=== PATIENT | female | born 1990 | race Caucasian/White ===

== ENCOUNTER 2017-10-29 05:20 | Inpatient (IN) | payer OTHER ==
[2017-10-29] MEDS ORDERED: LACTATED RINGER'S 1,000 ML IV (06:19)
[2017-10-29] MEDS: OXYTOCIN 30 UNITS/LR 500 ML IV (06:25)
[2017-10-29] MEDS ORDERED: LIDOCAINE 1% (MPF) 30 ML INJ INJ (06:30)
[2017-10-29] MEDS ORDERED: CARBOPROST 250 MCG INJ IM ×2 (06:30)
[2017-10-29] MEDS ORDERED: DIBUCAINE 1% 30 GM OINT PR (06:30)
[2017-10-29] MEDS ORDERED: MISOPROSTOL 200 MCG TAB PR ×2 (06:30)
[2017-10-29] MEDS ORDERED: SENNA/DOCUSATE NA (8.6MG/50MG) TAB PO (06:30)
[2017-10-29] MEDS ORDERED: OXYTOCIN 30 UNITS/LR 500 ML IV ×3 (06:30)
[2017-10-29] MEDS ORDERED: BUTORPHANOL 2 MG INJ IV ×2 (06:30)
[2017-10-29] MEDS ORDERED: ONDANSETRON 4 MG INJ IV (06:30)
[2017-10-29] MEDS ORDERED: OXYCODONE/ASPIRIN (4.88/325) TAB PO ×2 (06:30)
[2017-10-29] MEDS ORDERED: METHYLERGONOVINE 0.2 MG INJ IM ×2 (06:30)
[2017-10-29] MEDS ORDERED: AMPICILLIN 2 GM/NS (PMX) 100 ML IV (06:30)
[2017-10-29 06:34] LABS: CBV Base Excess -1.4 mmol/L; CBV COHb 0.9 %; CBV Total Hemglobin 17.7 g/dl; Cord Blood Venous pO2 15.7 mmHG (15.0-45.0); Fraction OxyHgb Cord Venous 33.3 %; MODE ROOM AIR; MetHgb Cord Venous 1.2 %; Sample Type Blood venous; Site CORD
[2017-10-29 07:14] LABS: ADD MAN DIFF? NO
[2017-10-29] MEDS: IBUPROFEN 600 MG TAB PO ×3 (07:15→18:01)
[2017-10-29 07:21] LABS: BASOPHIL # 0.1 10^3/ul (0.0-0.1); BASOPHILS % 0.3 % (0.0-2.0); EOSINOPHILS % 0.2 % (0.0-7.0); HEMATOCRIT 42.7 % (37.0-47.0); HEMOGLOBIN 14.7 g/dl (12.0-16.0); LYMPHOCYTES # 2.1 10^3/ul (0.8-2.9); LYMPHOCYTES % 11.1 % (15.0-51.0); MEAN CORPUSCULAR HEMOGLOBIN 26.9 pg (29.0-33.0); MEAN CORPUSCULAR HGB CONC 34.4 g/dl (32.0-37.0); MEAN CORPUSCULAR VOLUME 78.1 fl (82.0-101.0); MEAN PLATELET VOLUME 11.1 fl (7.4-10.4); MONOCYTE # 0.8 10^3/ul (0.3-0.9); MONOCYTES % 4.2 % (0.0-11.0); NEUTROPHIL # 15.5 10^3/ul (1.6-7.5); NEUTROPHILS % 83.7 % (39.0-77.0); PLATELET COUNT 294 10^3/UL (140-415); RED BLOOD COUNT 5.47 10^6/ul (4.20-5.40); RED CELL DISTRIBUTION WIDTH 12.7 % (11.5-14.5)
[2017-10-29 07:21] LABS: WHITE BLOOD COUNT 18.5 10^3/ul (4.8-10.8)
[2017-10-29 07:41] LABS: INR 0.92; PROTIME 12.4 Sec (11.9-14.9)
[2017-10-29 07:42] LABS: PARTIAL THROMBOPLASTIN TIME 28.4 Sec (25.0-35.0)
[2017-10-29 07:45] LABS: ALANINE AMINOTRANSFERASE 27 IU/L (13-69); ALBUMIN 3.6 g/dl (3.3-4.9); ALKALINE PHOSPHATASE 1000 IU/L (42-121); ANION GAP 14 (8-16); ASPARTATE AMINO TRANSFERASE 17 IU/L (15-46); BILIRUBIN,INDIRECT 0.5 mg/dl (0-1.1); BILIRUBIN,TOTAL 0.5 mg/dl (0.2-1.3); BLOOD UREA NITROGEN 6 mg/dl (7-20); CALCIUM 9.5 mg/dl (8.4-10.2); CARBON DIOXIDE 26 mmol/L (21-31); CHLORIDE 103 mmol/L (97-110); CREATININE 0.39 mg/dl (0.44-1.00); GLUCOSE 91 mg/dl (70-220); POTASSIUM 4.5 mmol/L (3.5-5.1); SODIUM 138 mmol/L (135-144); TOTAL PROTEIN 7.6 g/dl (6.1-8.1)
[2017-10-29 08:15] LABS: HEPATITIS B SURFACE ANTIGEN NEGATIVE (NEGATIVE)
[2017-10-29] MEDS: LANOLIN 7 GM TUBE TOP (09:57)
[2017-10-29] MEDS: SENNA/DOCUSATE NA (8.6MG/50MG) TAB PO (09:57)
[2017-10-29] MEDS: METHIMAZOLE 5 MG TAB PO (09:57)
[2017-10-29] MEDS: BENZOCAINE 20% 56 ML SPRAY TOP (09:57)
[2017-10-29] MEDS: MAGNESIUM HYDROXIDE 30ML CUP PO (09:57)
[2017-10-29] MEDS: WITCH HAZEL/GLYCERIN PAD PR (09:57)
[2017-10-29] MEDS ORDERED: AMPICILLIN 1 GM/NS (PMX) 50 ML IV (10:30)
[2017-10-29] MEDS: LACTATED RINGER'S 500 ML IV (11:00)
[2017-10-29 11:09] LABS: CANNABINOIDS Negative (NEGATIVE)
[2017-10-29 11:10] LABS: AMPHETAMINE/METHAMPHETAMINE Negative (NEGATIVE); BARBITURATES Negative (NEGATIVE); BENZODIAZEPINES Negative (NEGATIVE); COCAINE Negative (NEGATIVE); OPIATES Negative (NEGATIVE)
[2017-10-29 13:19] LABS: HIV 1&2 ANTIBODY NEGATIVE (NEGATIVE)
[2017-10-29 22:31] LABS: RAPID PLASMA REAGIN NONREACTIVE (NR)
[2017-10-30] MEDS: MAGNESIUM HYDROXIDE 30ML CUP PO ×3 (00:40→21:24)
[2017-10-30] MEDS: SENNA/DOCUSATE NA (8.6MG/50MG) TAB PO ×3 (00:40→21:25)
[2017-10-30] MEDS: IBUPROFEN 600 MG TAB PO ×4 (00:41→17:48)
[2017-10-30] MEDS: METHIMAZOLE 5 MG TAB PO (09:16)
[2017-10-30 09:20] LABS: ADD MAN DIFF? NO
[2017-10-30 09:23] LABS: BASOPHILS % 0.4 % (0.0-2.0); EOSINOPHILS # 0.1 10^3/ul (0.0-0.5); EOSINOPHILS % 1.3 % (0.0-7.0); HEMATOCRIT 36.1 % (37.0-47.0); HEMOGLOBIN 12.2 g/dl (12.0-16.0); LYMPHOCYTES # 3.8 10^3/ul (0.8-2.9); LYMPHOCYTES % 41.3 % (15.0-51.0); MEAN CORPUSCULAR HEMOGLOBIN 26.7 pg (29.0-33.0); MEAN CORPUSCULAR HGB CONC 33.8 g/dl (32.0-37.0); MEAN PLATELET VOLUME 11.1 fl (7.4-10.4); MONOCYTE # 0.9 10^3/ul (0.3-0.9); MONOCYTES % 9.4 % (0.0-11.0); NEUTROPHIL # 4.3 10^3/ul (1.6-7.5); NEUTROPHILS % 47.3 % (39.0-77.0); PLATELET COUNT 242 10^3/UL (140-415); RED BLOOD COUNT 4.57 10^6/ul (4.20-5.40); RED CELL DISTRIBUTION WIDTH 13.2 % (11.5-14.5)
[2017-10-30 09:23] LABS: WHITE BLOOD COUNT 9.1 10^3/ul (4.8-10.8)
[2017-10-30 13:42] LABS: RUBELLA ANTIBODY - IGG 2.71 index; RUBELLA ANTIBODY - IGM <20.00 AU/mL
[2017-10-31] MEDS: IBUPROFEN 600 MG TAB PO ×4 (00:05→17:35)
[2017-10-31] MEDS: METHIMAZOLE 5 MG TAB PO (08:47)
[2017-10-31] MEDS: MAGNESIUM HYDROXIDE 30ML CUP PO (08:47)
[2017-10-31] MEDS: SENNA/DOCUSATE NA (8.6MG/50MG) TAB PO (08:47)
== END 2017-10-31 18:14 | disposition home or self-care (01) | DRG 775 ==
LOC: OBT 05:20 → L-D 05:21 → PP1 09:00
PROC: 10E0XZZ Delivery of Products of Conception, External Approach (ICD-10-PCS; principal; 2017-10-29)
DX: O60.14X0 Preterm labor third trimester with preterm delivery third trimester, not applicable or unspecified (principal); O32.1XX0 Maternal care for breech presentation, not applicable or unspecified; E05.00 Thyrotoxicosis with diffuse goiter without thyrotoxic crisis or storm; O62.3 Precipitate labor; Z3A.34 34 weeks gestation of pregnancy; Z37.0 Single live birth
CPT/HCPCS: 36415; 80053; 80307; 82803; 85025; 85610; 85730; 86592; 86703; 86762; 86850; 86900; 86901; 87340; 88307; 99464